=== PATIENT | female | born 1980 | race Caucasian/White ===

== ENCOUNTER 2017-01-19 23:13 | Emergency (ER) | payer BC ==
[~2017-01-19] VITALS: Ht 165.1 cm; Wt 101.3 kg
[~2017-01-19 23:13] MED LIST: GLUCOPHAGE500 M1 PO; VANICREAM113 GM TP
[2017-01-19] MEDS ORDERED: NYSTATIN-TRIAMC15 GM TP (23:44)
[2017-01-19] MEDS ORDERED: PREDNISONE10 M1 PO (23:44)
[2017-01-19] MEDS ORDERED: ATARAX,VISTARIL25 MG PO (23:44)
[2017-01-19 23:58] VITALS: BP 150/88
== END 2017-01-19 23:59 | disposition home or self-care (01) ==
LOC: EME 23:13
DX: B37.2 Candidiasis of skin and nail (principal); Z88.6 Allergy status to analgesic agent
CPT/HCPCS: 99281; 99284; Q0177

== ENCOUNTER 2018-01-29 06:46 | Day surgery (SDC) | payer OTHER ==
[~2018-01-29] VITALS: Ht 165.1 cm; Wt 100.7 kg
[~2018-01-29 06:46] MED LIST changes: +ALDACTONE25 MG PO; +ATARAX,VISTARIL25 MG PO; +NAPROXEN SODIU550 MG PO; +NYSTATIN-TRIAMC15 GM TP; +PREDNISONE10 M1 PO; +TYLENOL EXTRA500 MG PO
[2018-01-29 07:22] VITALS: BP 119/73
[2018-01-29 11:00] VITALS: BP 123/73
[2018-01-29 12:00] VITALS: BP 113/73
== END 2018-01-29 12:20 | disposition home or self-care (01) ==
LOC: SDC 06:46
PROC: 0CTPXZZ Resection of Tonsils, External Approach (ICD-10-PCS; principal; 2018-01-29)
DX: J35.01 Chronic tonsillitis (principal); Z88.0 Allergy status to penicillin; R01.1 Cardiac murmur, unspecified
CPT/HCPCS: J0330; J1170; J2250; J2405; J3010